=== PATIENT | female | born 1995 ===

== ENCOUNTER 2017-01-18 19:07 | Observation (INO) ==
[2017-01-18 21:39] LABS: Basophils % 0.1 % (0.0-0.8); Eosinophils # 0.1 10*3/uL (0.0-0.87); Eosinophils % 0.9 % (0.00-10.9); Hematocrit 26.1 VOL% (35.7-47.0); Hemoglobin 8.4 GM/DL (12.0-16.0); Immature Granulocytes % 0.8 %; Immature Granulocytes Absolute 0.07 #; Lymphocytes # 1.8 10*3/uL (1.4-4.0); Lymphocytes % 20.9 % (21.3-54.2); Mean Corpuscular HGB Conc 32.2 GM/DL (32-36); Mean Corpuscular Hemoglobin 25 PG (27-34); Mean Corpuscular Volume 77.2 FL (87-102); Mean Platelet Volume 12.3 FL (9.6-12.0); Monocytes # 0.5 10*3/uL (0.11-0.8); Neutrophils # 6.1 10*3/uL (1.4-7.4); Neutrophils % 71.3 % (38.7-73.9); Platelet Count 214 T/CUMM (130-400); Red Blood Count 3.38 MC/CUMM (3.8-5.5); Red Cell Distribution Width 14.8 % (9.3-17.3); White Blood Count 8.6 T/CUMM (4-12)
[2017-01-18 22:14] LABS: INR 0.9; PT Patient Result 9.8 SECS; Partial Thromboplastin Time 30.7 SECS (0-40)
[2017-01-19 05:40] LABS: Basophils % 0.1 % (0.0-0.8); Eosinophils # 0.1 10*3/uL (0.0-0.87); Eosinophils % 1.4 % (0.00-10.9); Hematocrit 25.6 VOL% (35.7-47.0); Hemoglobin 8.2 GM/DL (12.0-16.0); Immature Granulocytes Absolute 0.08 #; Lymphocytes # 1.6 10*3/uL (1.4-4.0); Mean Corpuscular Hemoglobin 25 PG (27-34); Mean Corpuscular Volume 77.6 FL (87-102); Mean Platelet Volume 12.2 FL (9.6-12.0); Monocytes # 0.7 10*3/uL (0.11-0.8); Monocytes % 9.1 % (1.7-12.7); Neutrophils # 5.2 10*3/uL (1.4-7.4); Neutrophils % 67.4 % (38.7-73.9); Platelet Count 196 T/CUMM (130-400); White Blood Count 7.7 T/CUMM (4-12)
[2017-01-19 06:01] VITALS: BP 118/77
[2017-01-19] MEDS ORDERED: ACETAMINOPHEN 325 MG TABLET PO ONE (06:02)
[2017-01-19 06:16] LABS: INR 0.9; PT Patient Result 9.6 SECS; Partial Thromboplastin Time 30.9 SECS (0-40)
== END 2017-01-19 14:10 | disposition home or self-care (01) ==
LOC: N.LD 19:07 → N.LDOUT 19:07 → N.LD 19:19
PROVIDERS: ADMIT Obstetrics & Gynecology; ATTEND Obstetrics & Gynecology

== ENCOUNTER 2017-01-30 05:46 | Inpatient (IN) ==
[2017-01-30] MEDS: LACTATED RINGERS 1,000 ML IV SCH ×3 (06:22→21:42)
[2017-01-30] MEDS ORDERED: CITRIC ACID/SODIUM CITRATE 30 ML UDCUP PO ONE (06:30)
[2017-01-30] MEDS ORDERED: FAMOTIDINE 20 MG/2 ML VIAL IV ONE (06:30)
[2017-01-30] MEDS ORDERED: cefOXitin 2,000 MG in SYRINGE 1 EACH IV ONE (07:00)
[2017-01-30 07:34] LABS: Basophils % 0.1 % (0.0-0.8); Eosinophils % 0.1 % (0.00-10.9); Hematocrit 23.4 VOL% (35.7-47.0); Hemoglobin 7.4 GM/DL (12.0-16.0); Immature Granulocytes % 1.9 %; Immature Granulocytes Absolute 0.14 #; Lymphocytes # 0.4 10*3/uL (1.4-4.0); Lymphocytes % 5.4 % (21.3-54.2); Mean Corpuscular HGB Conc 31.6 GM/DL (32-36); Mean Corpuscular Hemoglobin 25 PG (27-34); Mean Platelet Volume 11.8 FL (9.6-12.0); Monocytes # 0.5 10*3/uL (0.11-0.8); NRBC # 0.03 10*3/uL; Neutrophils # 6.5 10*3/uL (1.4-7.4); Neutrophils % 85.5 % (38.7-73.9); Platelet Count 213 T/CUMM (130-400); Red Cell Distribution Width 15.7 % (9.3-17.3); White Blood Count 7.6 T/CUMM (4-12)
[2017-01-30] MEDS ORDERED: ACETAMINOPHEN INJ 1,000 MG in PREMIX 1 EACH IV ONE (07:41)
[2017-01-30] MEDS ORDERED: ACETAMINOPHEN 1,000 MG/100 ML VIAL IV ONE (07:42)
[2017-01-30] MEDS ORDERED: OXYTOCIN/LR 20 UNIT/1,000 ML BAG IV ONE ×2 (07:46→09:59)
[2017-01-30] MEDS ORDERED: SODIUM CHLORIDE 0.9% 1,000 ML IV PRN (08:04)
[2017-01-30 08:08] LABS: Albumin 2.1 G/DL (3.4-5.0); Bilirubin,Total 0.5 MG/DL (0.2-1.0); Calcium 7.7 MG/DL (8.5-10.1); Osmolality,Calculated 271.7 MOS/KG (273-304); Potassium 3.7 MMOL/L (3.5-5.1); Total Protein 5.6 G/DL (6.4-8.3)
[2017-01-30] MEDS ORDERED: SIMETHICONE CHEW 80 MG TABLET PO PRN (09:59)
[2017-01-30] MEDS ORDERED: RHO(D) IMMUNE GLOBULIN 300 MCG SYRINGE IM ONE (09:59)
[2017-01-30] MEDS ORDERED: ONDANSETRON 4 MG/2 ML VIAL IV PRN (09:59)
[2017-01-30] MEDS ORDERED: ACETAMINOPHEN 325 MG TABLET PO PRN (09:59)
[2017-01-30] MEDS ORDERED: MAGNESIUM HYDROXIDE SUSP 30 ML UDCUP PO PRN (09:59)
[2017-01-30] MEDS ORDERED: LACTATED RINGERS 1,000 ML IV SCH (10:00)
[2017-01-30] MEDS ORDERED: ceFAZolin 1,000 MG in SYRINGE 1 EACH IV SCH (10:00)
[2017-01-30] MEDS ORDERED: ePHEDrine 50 MG/ML AMP ONE (10:21)
[2017-01-30] MEDS ORDERED: MORPHINE 10 MG/10 ML VIAL ONE (10:21)
[2017-01-30] MEDS ORDERED: SODIUM CHLORIDE 0.65% NASAL SPRAY 45 ML BOTTLE BOTH NARES PRN (10:58)
[2017-01-30] MEDS ORDERED: miSOPROStol 200 MCG TABLET RECTAL ONE (12:16)
[2017-01-30] MEDS ORDERED: OSELTAMIVIR 75 MG CAPSULE PO SCH (15:00)
[2017-01-30] MEDS: OSELTAMIVIR 75 MG CAPSULE PO SCH (15:04)
[2017-01-30 16:49] LABS: Hematocrit 23.2 VOL% (35.7-47.0); Hemoglobin 7.3 GM/DL (12.0-16.0)
[2017-01-30] MEDS: IBUPROFEN 800 MG TABLET PO PRN (16:54)
[2017-01-30 17:46] LABS: Albumin 1.6 G/DL (3.4-5.0); Bilirubin,Total 0.4 MG/DL (0.2-1.0); Calcium 6.9 MG/DL (8.5-10.1); Osmolality,Calculated 270.8 MOS/KG (273-304); Potassium 3.9 MMOL/L (3.5-5.1); Total Protein 4.3 G/DL (6.4-8.3)
[2017-01-30 18:14] LABS: PT Patient Result 10.6 SECS
[2017-01-30 19:14] LABS: Protein/Creatinine Ratio,Urine 0.7 RATIO
[2017-01-31] MEDS: DOCUSATE SODIUM 100 MG CAPSULE PO SCH ×3 (00:33→22:08)
[2017-01-31] MEDS ORDERED: ceFAZolin 1,000 MG in SYRINGE 1 EACH IV SCH (01:15)
[2017-01-31] MEDS: OSELTAMIVIR 75 MG CAPSULE PO SCH ×3 (01:24→22:07)
[2017-01-31] MEDS: LACTATED RINGERS 1,000 ML IV SCH (05:21)
[2017-01-31 06:49] LABS: Basophils % 0.1 % (0.0-0.8); Eosinophils % 0.1 % (0.00-10.9); Hematocrit 21.3 VOL% (35.7-47.0); Hemoglobin 7.2 GM/DL (12.0-16.0); Immature Granulocytes % 0.9 %; Immature Granulocytes Absolute 0.09 #; Lymphocytes # 1.1 10*3/uL (1.4-4.0); Lymphocytes % 11.1 % (21.3-54.2); Mean Corpuscular HGB Conc 33.8 GM/DL (32-36); Mean Corpuscular Hemoglobin 26 PG (27-34); Mean Corpuscular Volume 77.2 FL (87-102); Mean Platelet Volume 11.9 FL (9.6-12.0); Monocytes # 0.4 10*3/uL (0.11-0.8); Monocytes % 4.4 % (1.7-12.7); NRBC # 0.02 10*3/uL; Neutrophils # 8.4 10*3/uL (1.4-7.4); Neutrophils % 83.4 % (38.7-73.9); Red Blood Count 2.76 MC/CUMM (3.8-5.5); Red Cell Distribution Width 16.3 % (9.3-17.3)
[2017-01-31 06:52] LABS: Platelet Count 157 T/CUMM (130-400)
[2017-01-31 07:02] LABS: Band Neutrophils 7 % (0-10); Giant Platelets Few; Hypochromasia 1+; Lymphocytes 6 % (20-55); Ovalocytes Slight; Platelet Estimate Normal; Segmented Neutrophils 85 % (50-85); Total Cells Counted 100
[2017-01-31] MEDS: MULTIVITAMIN (PRENATAL) TABLET PO SCH (10:22)
[2017-01-31] MEDS: IBUPROFEN 800 MG TABLET PO PRN (11:34)
[2017-02-01] MEDS: IBUPROFEN 800 MG TABLET PO PRN ×2 (09:39→18:32)
[2017-02-01] MEDS: DOCUSATE SODIUM 100 MG CAPSULE PO SCH ×2 (09:39→20:53)
[2017-02-01] MEDS: OSELTAMIVIR 75 MG CAPSULE PO SCH ×2 (09:39→20:53)
[2017-02-01] MEDS: FERROUS SULFATE 325 MG TABLET PO SCH ×3 (09:39→20:53)
[2017-02-01] MEDS: MULTIVITAMIN (PRENATAL) TABLET PO SCH (09:39)
[2017-02-02 08:10] VITALS: BP 150/93
[2017-02-02] MEDS: MULTIVITAMIN (PRENATAL) TABLET PO SCH (09:32)
[2017-02-02] MEDS: FERROUS SULFATE 325 MG TABLET PO SCH (09:32)
[2017-02-02] MEDS: OSELTAMIVIR 75 MG CAPSULE PO SCH (09:32)
[2017-02-02] MEDS: DOCUSATE SODIUM 100 MG CAPSULE PO SCH (09:32)
[2017-02-02] MEDS ORDERED: INFLUENZA VIRUS VACCINE 0.5 ML SYRINGE IM ONE (10:42)
[2017-02-02] MEDS: IBUPROFEN 800 MG TABLET PO PRN (13:35)
== END 2017-02-02 14:50 | disposition home or self-care (01) | DRG 540 ==
LOC: N.LDOUT 05:46 → N.LD 05:49 → N.OB 14:26
PROVIDERS: ADMIT Obstetrics & Gynecology; ATTEND Obstetrics & Gynecology
PROC: LDCSECT (ICD-10-PCS; 2017-01-30 08:30)